=== PATIENT | female | born 1995 | race Caucasian/White ===

== ENCOUNTER 2017-03-16 07:07 | Emergency (ER) | payer OTHER ==
[~2017-03-16] VITALS: Ht 157.5 cm; Wt 64.0 kg
[~2017-03-16 07:07] MED LIST: AMOX1TAB61 PO; CLIN-73 PO; HYDR-3025 PO
[2017-03-16 07:08] VITALS: Ht 157.5 cm; Wt 64.0 kg
[2017-03-16] MEDS ORDERED: SOD CHLORIDE 0.9% 500 ML IV STA (07:24)
[2017-03-16] MEDS ORDERED: KETOROLAC 30 MG INJ IV STA (07:24)
[2017-03-16] MEDS ORDERED: AMPICILLIN/SULB 3 GM/NS (PMX) 100 ML IVPB ONE (07:30)
[2017-03-16] MEDS ORDERED: DEXAMETHASONE 10 MG/ML 1 ML INJ IV ONE (07:30)
[2017-03-16] MEDS ORDERED: AMOX1TAB10 PO (08:46)
[2017-03-16] MEDS ORDERED: IBUP800T25 PO (08:46)
[2017-03-16] MEDS ORDERED: HYDR-906 PO (08:46)
--- NOTE | 2017-03-16 09:12 | ERD ---
ER Documentation Chief Complaint Chief Complaint throat pain since yesterday HPI This is a very pleasant 21-year-old female who presents with 24 hours of symptoms including throat pain. She describes a fullness sensation in her throat and states is very similar to throat infection in the past. She denies any difficulty swallowing liquids, no drooling. Subjective fever at home yesterday evening. She denies an weight loss cough or significant shortness of breath. No rash. ROS All systems reviewed and are negative except as per history of present illness. Medications Home Meds Active Scripts Amoxicillin/Potassium Clav (Amox-Clav 875-125 mg Tablet) 875-125 mg Tab, 1 TAB PO BID for 7 Days, #14 TAB Prov:CLYDE NIETO MD 03/16/17 Ibuprofen* (Motrin*) 800 Mg Tab, 800 MG PO Q6H Y for PAIN AND OR ELEVATED TEMP, #30 TAB Prov:CLYDE NIETO MD 03/16/17 Hydrocodone/Acetaminophen ([place] 5-325 Tablet) 1 Each Tablet, 1 TAB PO Q6H Y for PAIN, #7 TAB Prov:CLYDE NIETO MD 03/16/17 Hydrocodone Bit-Acetaminophen* (Vicodin* ES) 7.5-300 Mg Tablet, 1 EACH PO Q4H Y for PAIN, #20 TAB Prov:NICK DOTSON PA-C 12/01/14 Clindamycin Hcl* (Clindamycin Hcl*) 300 Mg Capsule, 450 MG PO TID for 10 Days, CAP Prov:NICK DOTSON PA-C 12/01/14 Amox Tr-Potassium Clavulanate* (Augmentin XR*) 1,000-62.5 Mg Tab.sr.12h, 1 TAB PO Q12 for 7 Days, TAB 0 Refills Prov:QUENTIN COTTON MD 11/13/14 Allergies Allergies: Coded Allergies: No Known Allergies (Verified Allergy, Unknown, 12/01/14) PMhx/Soc Medical and Surgical Hx: pt denies Medical Hx, pt denies Surgical Hx History of Surgery: Yes (I&D THROAT ABSCESS 10/19/14) Anesthesia Reaction: No Hx Neurological Disorder: No Hx Respiratory Disorders: No Hx Cardiac Disorders: No Hx Psychiatric Problems: No Hx Miscellaneous Medical Probl: No Hx Alcohol Use: No Hx Substance Use: No Hx Tobacco Use: No FmHx Family History: No diabetes Physical Exam Vitals Vital Signs Date Time Temp Pulse Resp B/P Pulse Ox O2 Delivery O2 Flow Rate FiO2 03/16/17 07:08 99.6 111 19 132/58 99 Physical Exam General: Well developed, well nourished, no acute distress Head: Normocephalic, atraumatic. Eyes: Pupils equally reactive, EOM intact ENT: Posterior pharynx with 2+ tonsillar swelling and exudates bilaterally, left is slightly more full than the right, uvula is midline, tolerating secretions, soft submental space Neck: Supple, bilateral anterior cervical chain lymphadenopathy Respiratory: Lungs clear bilaterally, no distress Cardiovascular: RRR, no murmurs, rubs, or gallops Abdominal: Soft, non-tender, non-distended, no peritoneal signs : Deferred MSK: No edema, no unilateral swelling, 5/5 strength Neurologic: Alert and oriented, moving all extremities, normal speech, no focal weakness, no cerebellar signs, no meningismus Skin: No rash Psych: Normal mood Results 24 hrs Current Medications Medications (Trade) Dose Ordered Sig/Ez Route PRN Reason Start Time Stop Time Status Last Admin Dose Admin Sodium Chloride (NS) 500 ml @ 500 mls/hr Q1H STAT IV 03/16/17 07:24 03/16/17 08:23 DC 03/16/17 07:44 Ketorolac Tromethamine (Toradol) 30 mg ONCE STAT IV 03/16/17 07:24 03/16/17 07:26 DC 03/16/17 07:44 Dexamethasone 10 mg 10 mg ONCE ONCE IV 03/16/17 07:30 03/16/17 07:31 DC 03/16/17 07:44 Ampicillin Sodium/ Sulbactam Sodium (Unasyn 3gm/NS (Pmx)) 100 ml @ 100 mls/hr ONCE ONCE IVPB 03/16/17 07:30 03/16/17 08:29 DC 03/16/17 08:01 Procedures/MDM The patient has clinical signs and symptoms consistent with tonsillitis. The patient does have slight unilateral swelling on the left greater than the right. While the patient does not clinically have peritonsillar abscess the patient is certainly at risk for this and will be treated as such. However, at this point given how early it is I do not feel that incision and drainage would be beneficial. She has no clinical signs or symptoms concerning for deep space infection or retropharyngeal abscess, no indication for CT imaging. The patient was given IV fluids, Toradol, Decadron and Unasyn. On reevaluation the patient has improved symptoms she is tolerating secretions and able to open her mouth much better. At this time again, I do not feel that ENT consultation for incision and drainage is necessary. I did discuss prompt follow-up within 24-48 hours if symptoms worsen. The patient verbalized understanding. Eventually she will need tonsillectomy as an outpatient I have given a referral information for that as well. We discussed follow up with the patient's primary care doctor within 24 to 48 hours as needed. We also discussed return to the emergency room for worsening symptoms or worsening condition. Outpatient referral: ENT, Dr. Ledezma Discharge Medications: Sparks, Motrin, Augmentin We discussed the use of narcotics including avoidance of operating heavy machinery and driving as well as its addictive properties. Departure Diagnosis: Primary Impression: Tonsillitis Condition: Stable Patient Instructions: Adult Tonsillectomy, Pharyngitis, Report Pending Referrals: CARLOS GARDUNO (PCP) MICHELLE LEDEZMA MD Additional Instructions: Please return to the emergency room for any difficulty swallowing or drooling. Return to the emergency room if you have persistent symptoms after 24-48 hours. You may require drainage if symptoms persist. Otherwise follow-up with primary care physician and outpatient ear nose and throat for eventual tonsillectomy. CLYDE NIETO MD Mar 16, 2017 09:12
[2017-03-16 10:26] VITALS: BP 128/68; PULSE 77; RESP 18
== END 2017-03-16 10:27 | disposition home or self-care (01) ==
LOC: FTE 07:07
DX: J03.90 Acute tonsillitis, unspecified (principal)
CPT/HCPCS: 96374; 96375; J0295; J1100; J1885; J7040; Z7502

== ENCOUNTER 2017-03-18 07:30 | Emergency (ER) | payer OTHER ==
[~2017-03-18] VITALS: Ht 160 cm; Wt 64.0 kg
[~2017-03-18 07:30] MED LIST changes: +AMOX1TAB10 PO; +HYDR-906 PO; +IBUP800T25 PO
[2017-03-18 07:31] VITALS: Ht 160 cm; Wt 64.0 kg
[2017-03-18] MEDS ORDERED: SODIUM CHLORIDE 0.9% 1L BAG IV* STA (07:58)
[2017-03-18] MEDS ORDERED: PIPER-TAZO 3.375 GM IV (PMX) 100 ML IVPB STA (07:58)
--- NOTE | 2017-03-18 08:32 | ERD ---
ER Documentation Chief Complaint Chief Complaint was here 2 days ago for peritonsil abscess given IV ATB and sent home atb HPI 21-year-old female presenting with a chief complaints of pharyngitis. Was here 2 days ago given Augmentin, [place], ibuprofen. Symptoms have worsened since last discharge. Tolerates oral secretions. States that her voice is changed. Describes hot potato voice. Pain worsens when opening mouth. Hurts to swallow. Mild left ear pain. No change in hearing. Denies cough, difficulty breathing, drooling, or meningismus. Patient has no other complaints and describes no other associated manifestations. Nursing notes and previous documents have been reviewed and are consistent with history given. ROS All systems reviewed and are negative except as per history of present illness. Medications Home Meds Active Scripts Prednisone* (Prednisone*) 20 Mg Tab, 40 MG PO DAILY for 4 Days, TAB Prov:SARAHY MALDONADO PA-C 03/18/17 Amoxicillin/Potassium Clav (Amox-Clav 875-125 mg Tablet) 875-125 mg Tab, 1 TAB PO BID for 7 Days, #14 TAB Prov:CLYDE NIETO MD 03/16/17 Ibuprofen* (Motrin*) 800 Mg Tab, 800 MG PO Q6H Y for PAIN AND OR ELEVATED TEMP, #30 TAB Prov:CLYDE NIETO MD 03/16/17 Hydrocodone/Acetaminophen ([place] 5-325 Tablet) 1 Each Tablet, 1 TAB PO Q6H Y for PAIN, #7 TAB Prov:CLYDE NIETO MD 03/16/17 Hydrocodone Bit-Acetaminophen* (Vicodin* ES) 7.5-300 Mg Tablet, 1 EACH PO Q4H Y for PAIN, #20 TAB Prov:NICK DOTSON PA-C 12/01/14 Clindamycin Hcl* (Clindamycin Hcl*) 300 Mg Capsule, 450 MG PO TID for 10 Days, CAP Prov:NICK DOTSON PA-C 12/01/14 Amox Tr-Potassium Clavulanate* (Augmentin XR*) 1,000-62.5 Mg Tab.sr.12h, 1 TAB PO Q12 for 7 Days, TAB 0 Refills Prov:QUENTIN COTTON MD 11/13/14 Allergies Allergies: Coded Allergies: No Known Allergies (Verified Allergy, Unknown, 03/18/17) PMhx/Soc History of Surgery: Yes (I&D THROAT ABSCESS 10/19/14) Anesthesia Reaction: No Hx Neurological Disorder: No Hx Respiratory Disorders: No Hx Cardiac Disorders: No Hx Psychiatric Problems: No Hx Miscellaneous Medical Probl: No Hx Alcohol Use: No Hx Substance Use: No Hx Tobacco Use: No Physical Exam Vitals Physical Exam Const: Well-appearing 21-year-old female no acute distress Head: Atraumatic Eyes: Normal Conjunctiva. PERRLA, EOMI bilaterally. ENT: Swelling consistent with an abscess in the left peritonsillar area. Soft to palpation. Otoscope exam unremarkable. No pain with movement of the external auricles bilaterally. Difficulty with child range of motion secondary to pain. Neck: Full range of motion..~ No meningismus. Resp: Clear to auscultation bilaterally Cardio: Regular rate and rhythm, no murmurs Abd: Soft, non tender, non distended. Normal bowel sounds Skin: No petechiae or rashes Back: No midline or flank tenderness Ext: No cyanosis, or edema Neur: Awake and alert Psych: Normal Mood and Affect Results 24 hrs Laboratory Tests Test 03/18/17 08:31 03/18/17 10:22 03/18/17 12:55 White Blood Count 11.710^3/ul Red Blood Count 4.8110^6/ul Hemoglobin 12.0g/dl Hematocrit 38.0% Mean Corpuscular Volume 79.0fl Mean Corpuscular Hemoglobin 24.9pg Mean Corpuscular Hemoglobin Concent 31.6g/dl Red Cell Distribution Width 15.3% Platelet Count 97821^3/UL Mean Platelet Volume 11.9fl Neutrophils % 67.1% Lymphocytes % 21.3% Monocytes % 9.7% Eosinophils % 1.1% Basophils % 0.5% Nucleated Red Blood Cells % 0.0/100WBC Neutrophils # 7.910^3/ul Lymphocytes # 2.510^3/ul Monocytes # 1.110^3/ul Eosinophils # 0.110^3/ul Basophils # 0.110^3/ul Nucleated Red Blood Cells # 0.010^3/ul Prothrombin Time 13.4Sec Prothrombin Time Ratio 1.0 INR International Normalized Ratio 1.02 Activated Partial Thromboplast Time 39.5Sec Sodium Level 147mmol/L Potassium Level 3.5mmol/L Chloride Level 111mmol/L Carbon Dioxide Level 24mmol/L Anion Gap 16 Blood Urea Nitrogen 8mg/dl Creatinine 0.64mg/dl Glucose Level 80mg/dl Lactic Acid Level 1.1mmol/L 1.4mmol/L 0.7mmol/L Calcium Level 8.6mg/dl Total Bilirubin 0.3mg/dl Direct Bilirubin 0.00mg/dl Indirect Bilirubin 0.3mg/dl Aspartate Amino Transf (AST/SGOT) 16IU/L Alanine Aminotransferase (ALT/SGPT) 27IU/L Alkaline Phosphatase 94IU/L Total Protein 7.3g/dl Albumin 4.0g/dl Globulin 3.30g/dl Albumin/Globulin Ratio 1.21 Current Medications Medications (Trade) Dose Ordered Sig/Ez Route PRN Reason Start Time Stop Time Status Last Admin Dose Admin Sodium Chloride 1980 ml 1,980 ml BOLUS OVER 2 HOURS STAT IV* 03/18/17 07:58 03/18/17 08:01 DC 03/18/17 07:58 Piperacillin Sod/ Tazobactam Sod (Zosyn 3.375gm/ 100 ml (Pmx)) 100 ml @ 200 mls/hr ONCE STAT IVPB 03/18/17 07:58 03/18/17 08:27 DC 03/18/17 07:58 Morphine Sulfate (morphine) 10 mg ONCE ONCE PO 03/18/17 10:00 03/18/17 10:00 DC Ketorolac Tromethamine (Toradol) 15 mg ONCE STAT IV 03/18/17 09:45 03/18/17 09:47 DC 03/18/17 10:14 Ondansetron HCl (Zofran Inj) 4 mg ONCE STAT IV 03/18/17 09:45 03/18/17 09:47 DC 03/18/17 10:14 Morphine Sulfate (morphine) 4 mg ONCE STAT IV 03/18/17 09:50 03/18/17 09:52 DC 03/18/17 10:14 Morphine Sulfate (morphine) 4 mg STK-MED ONCE .ROUTE 03/18/17 09:52 03/18/17 09:53 DC IV Flush 10 ml 10 ml STK-MED ONCE .ROUTE 03/18/17 09:57 03/18/17 09:58 DC Sodium Chloride (NS) 100 ml @ ud STK-MED ONCE .ROUTE 03/18/17 09:57 03/18/17 09:58 DC Iohexol (Omnipaque 300mg/ ml) 150 ml STK-MED ONCE .ROUTE 03/18/17 09:57 03/18/17 09:58 DC Lidocaine (Xylocaine 1% (Mdv) 20 ml) 20 ml ONCE ONCE SC 03/18/17 14:00 03/18/17 14:01 DC Procedures/MDM 21-year-old female returning to the emergency department for sore throat. Patient was on Augmentin, [place], ibuprofen with minimal relief. Symptoms have worsened. Tolerates oral secretions. No difficulty breathing. Presented the case my attending Dr. Lakhani who worked the patient up for sepsis criteria and obtained a CT scan with contrast of the soft tissue neck. Urine negative. Labs revealed the following: CBC: WBC 11.7. Neutrophils 7.9. PTT 39.5. Sodium 147. Chloride 111. CT: Left peritonsillar abscess with moderate edema in the surrounding edema in the surrounding para mucosal space. There are multiple reactive level II lymph nodes bilaterally. Notified my attending who recommended contacting ENT to see if they want to do an in office drainage. ENT was contacted. ENT drained abscess in ED. Cleared pt to go. Spoke to my attending who recommended continuing Augmentin treatment with office electrician followup. Most likely dx is dental abscess. I have no suspicion for airway compromise or other SBI. Pt stable and appropriate for DC. Departure Diagnosis: Primary Impression: Dental abscess Condition: Stable Additional Instructions: Follow up with office electrician in the next 24 hours. Return if symptoms worsen or change. SARAHY MALDONADO PA-C Mar 18, 2017 08:32
[2017-03-18 08:52] LABS: BASOPHIL # 0.1 10^3/ul (0.0-0.1); BASOPHILS % 0.5 % (0.0-2.0); EOSINOPHILS # 0.1 10^3/ul (0.0-0.5); EOSINOPHILS % 1.1 % (0.0-7.0); LYMPHOCYTES # 2.5 10^3/ul (0.8-2.9); LYMPHOCYTES % 21.3 % (18.0-55.0); MEAN CORPUSCULAR HEMOGLOBIN 24.9 pg (29.0-33.0); MEAN CORPUSCULAR HGB CONC 31.6 g/dl (32.0-37.0); MEAN PLATELET VOLUME 11.9 fl (7.4-10.4); MONOCYTE # 1.1 10^3/ul (0.3-0.9); MONOCYTES % 9.7 % (0.0-13.0); NEUTROPHIL # 7.9 10^3/ul (1.6-7.5); NEUTROPHILS % 67.1 % (30.0-74.0); PLATELET COUNT 188 10^3/UL (140-415); RED BLOOD COUNT 4.81 10^6/ul (4.20-5.40); RED CELL DISTRIBUTION WIDTH 15.3 % (11.5-14.5); WHITE BLOOD COUNT 11.7 10^3/ul (4.8-10.8)
[2017-03-18 09:06] LABS: INR 1.02; PROTIME 13.4 Sec (12.2-14.2)
[2017-03-18 09:07] LABS: PARTIAL THROMBOPLASTIN TIME 39.5 Sec (25.0-35.0)
[2017-03-18 09:11] LABS: ALBUMIN/GLOBULIN RATIO 1.21; BILIRUBIN,INDIRECT 0.3 mg/dl (0-1.1); BILIRUBIN,TOTAL 0.3 mg/dl (0.2-1.3); CALCIUM 8.6 mg/dl (8.4-10.2); CREATININE 0.64 mg/dl (0.44-1.00); POTASSIUM 3.5 mmol/L (3.5-5.1); TOTAL PROTEIN 7.3 g/dl (6.1-8.1)
[2017-03-18] MEDS ORDERED: ONDANSETRON 4 MG INJ IV STA (09:45)
[2017-03-18] MEDS ORDERED: KETOROLAC 15 MG INJ IV STA (09:45)
[2017-03-18] MEDS ORDERED: morphine 4 MG/ML VIAL IV STA (09:50)
[2017-03-18] MEDS ORDERED: morphine 4 MG/ML VIAL ONE (09:52)
[2017-03-18] MEDS ORDERED: IOHEXOL 300MG/ML 150 ML BTL ONE (09:57)
[2017-03-18] MEDS ORDERED: SOD CHLORIDE 0.9% 100 ML ONE (09:57)
[2017-03-18] MEDS ORDERED: morphine LIQ (10 MG/5 ML) CUP PO ONE (10:00)
--- NOTE | 2017-03-18 10:18 | RADRPT ---
PROCEDURE: CT neck with intravenous contrast CLINICAL INDICATION: Sore throat. COMPARISON: None relevant listed. TECHNIQUE: CT of the neck was performed following the uneventful administration of 80 mL Omnipaque -300 intravenous contrast. Axial images were obtained through the neck with multiplanar reformats. DOSE: The estimated administered radiation dose was CTDI vol = 9 mGy. DLP = 263 mGy-cm. One or more of the following dose reduction techniques were used: automated exposure control, adjustment of the mA and/or kV according to patient size, or use of iterative reconstruction technique. FINDINGS: Aerodigestive tract: A low density collection within the left palatine tonsil measures about 21 x 12 x 19 mm, consistent with peritonsillar abscess. The left palatine tonsil is enlarged, heterogeneous , and enhancing. Mild amount of fluid surrounding the left palatine tonsil and appear mucosal space of the oropharynx and hypopharynx. Artifact created by dental hardware limits evaluation of the oral cavity and to a lesser extent the oropharynx. No primary lesion identified within the nasopharynx, hypopharynx, larynx, and proximal t rachea. Salivary glands: Normal. Thyroid: Normal. Lymph nodes: Multiple enlarged lymph nodes in the level II neck bilaterally, reactive in nature. On the left lymph nodes measure up to 16 x 16 mm. On the right of the measure up to 17 x [address] ologically enlarged or morphologically suspicious adenopathy. Vessels: Patent. Bones: Normal. Visualized lung apices: Clear. Visualized brain parenchyma: Normal. Additional comment: None. IMPRESSION: Left peritonsillar abscess with moderate edema in the surrounding edema in the surrounding para muco jp space. There are multiple reactive level II lymph nodes bilaterally RPTAT: EE Physician Jona Date Time Electronically viewed and signed by Physician Jona on 03/18/2017 10:18 LG/
[2017-03-18] MEDS ORDERED: LIDOCAINE 1% (MDV) 20 ML INJ SC ONE (14:00)
[2017-03-18] MEDS ORDERED: PRED20TA PO (14:21)
[2017-03-18 14:44] VITALS: BP 120/78; PULSE 78; RESP 17
--- NOTE | 2017-03-19 08:08 | CONS ---
Date/Time of Note Date/Time of Note DATE: 03/19/17 TIME: 08:05 Assessment/Plan Assessment/Plan Additional Assessment/Plan Left peritonsillar abscess status post I&D in emergency room today. Since this is the patient's second episode of a peritonsillar abscess, she would benefit from a tonsillectomy. Recommend outpatient antibiotic therapy for 1 week. Consultation Date/Type/Reason Admit Date/Time Date of Consultation: Mar 18, 2017 Type of Consultation: Ear nose throat Reason for Consultation Peritonsillar abscess Hx of Present Illness The patient is a 21-year-old female with a history of a prior peritonsillar abscess who presents with 1 week of increasing throat pain. She had already presented to the emergency room earlier this week for antibiotics. Despite antibiotic therapy she developed an abscess. A CT demonstrated a 2 cm left peritonsillar abscess. ENT: sore throat Exam/Review of Systems Vital Signs Vitals Vital Signs Date Time Temp Pulse Resp B/P Pulse Ox O2 Delivery O2 Flow Rate FiO2 03/18/17 14:44 78 17 120/78 100 Room Air 03/18/17 07:31 98.5 Exam ENMT: other (The oral cavity exam demonstrated uvular deviation to the right side with bulging of the left soft palate. After informed consent was obtained the left soft palate was injected with 1% lidocaine with epinephrine a 6 mm curvilinear incision was made just superolateral to the left tonsil Morelia clamp was then used enter the abscess cavity. Approximately 8 cc of pus were expressed from the wound and suctioned. The patient tolerated the procedure well. There was minimal bleeding.) Results Result Diagram: 03/18/17 0831 03/18/17 0831 Results 24 hrs Laboratory Tests Test 03/18/17 08:31 03/18/17 10:22 03/18/17 12:55 White Blood Count 11.7 #H Red Blood Count 4.81 Hemoglobin 12.0 Hematocrit 38.0 Mean Corpuscular Volume 79.0 Mean Corpuscular Hemoglobin 24.9 L Mean Corpuscular Hemoglobin Concent 31.6 L Red Cell Distribution Width 15.3 H Platelet Count 188 Mean Platelet Volume 11.9 #H Neutrophils % 67.1 Lymphocytes % 21.3 Monocytes % 9.7 Eosinophils % 1.1 Basophils % 0.5 Nucleated Red Blood Cells % 0.0 Neutrophils # 7.9 H Lymphocytes # 2.5 Monocytes # 1.1 H Eosinophils # 0.1 Basophils # 0.1 Nucleated Red Blood Cells # 0.0 Prothrombin Time 13.4 Prothrombin Time Ratio 1.0 INR International Normalized Ratio 1.02 Activated Partial Thromboplast Time 39.5 H Sodium Level 147 H Potassium Level 3.5 Chloride Level 111 H Carbon Dioxide Level 24 Anion Gap 16 Blood Urea Nitrogen 8 Creatinine 0.64 Glucose Level 80 Lactic Acid Level 1.1 1.4 0.7 Calcium Level 8.6 Total Bilirubin 0.3 Direct Bilirubin 0.00 Indirect Bilirubin 0.3 Aspartate Amino Transf (AST/SGOT) 16 Alanine Aminotransferase (ALT/SGPT) 27 Alkaline Phosphatase 94 Total Protein 7.3 Albumin 4.0 Globulin 3.30 H Albumin/Globulin Ratio 1.21 MICHELLE ESCOBAR MD Mar 19, 2017 08:08
== END 2017-03-18 14:46 | disposition home or self-care (01) ==
LOC: FTE 07:30
DX: K04.7 Periapical abscess without sinus (principal); R07.9 Chest pain, unspecified
CPT/HCPCS: 70491; 80053; 83605; 85025; 85610; 85730; 87040; J1885; J2270; J2405; J2543; J7030; Q9967; Z7610; 36415; 96374; 96375

== ENCOUNTER 2017-10-25 10:36 | Emergency (ER) | END 2017-10-25 11:09 | disposition home or self-care (01) ==

== ENCOUNTER 2018-04-26 00:22 | Emergency (ER) | END 2018-04-26 02:06 | disposition home or self-care (01) ==